=== PATIENT | female | born 1975 | race Asian ===

== ENCOUNTER 2018-08-28 09:04 | Emergency (ER) | payer BC ==
[~2018-08-28] VITALS: Ht 160 cm; Wt 63.5 kg
[2018-08-28 09:04] VITALS: BP_SYST 147
--- NOTE | 2018-08-28 09:04 | NUR ---
BROUGHT IN BY [facility], PLACED IN BED #6 AND TRIAGED. REPORT GIVEN TO ZOHREH
--- NOTE | 2018-08-28 09:15 | NUR ---
Pt presents to ED c/o CWP at work. Pt has no med hx.
--- NOTE | 2018-08-28 09:20 | NUR ---
ER at bedside examining patient.
[2018-08-28] MEDS ORDERED: KETOROLAC TROMETHAMINE 15 MG VIAL IVP ONE (10:00)
[2018-08-28] MEDS ORDERED: KETOROLAC TROMETHAMINE 30 MG VIAL IM ONE (10:15)
[2018-08-28 10:50] LABS: BASOPHILS # (AUTO) 0.1 K/uL (0.0-0.2); BASOPHILS % (AUTO) 0.6 % (0.0-2.0); EOSINOPHILS % (AUTO) 0.3 % (0.0-4.0); HEMATOCRIT 35.2 % (36-48); HEMOGLOBIN 11.1 g/dL (12.0-16.0); LYMPHOCYTES # (AUTO) 1.5 K/uL (1.0-5.5); LYMPHOCYTES % (AUTO) 16.8 % (20.5-51.5); MEAN CORPUSCULAR HEMOGLOBIN 25 pg (27-31); MEAN CORPUSCULAR HGB CONC 32 % (32-36); MEAN CORPUSCULAR VOLUME 79 fL (79.0-98.0); MONOCYTES # (AUTO) 0.6 K/uL (0.0-1.0); MONOCYTES % (AUTO) 6.4 % (1.7-9.3); NEUTROPHILS # (AUTO) 6.9 K/uL (1.8-7.7); NEUTROPHILS % (AUTO) 75.9 % (40.0-70.0); PLATELET COUNT (AUTO) 395 K/uL (130-430); RED BLOOD CELL COUNT(AUTO) 4.47 MIL/uL (4.2-6.2); RED CELL DISTRIBUTION WIDTH 15.9 % (9.0-15.0); WHITE BLOOD COUNT (AUTO) 9.1 K/uL (4.8-10.8)
[2018-08-28 10:58] LABS: ANION GAP 9 (5-15); CALCIUM 9.3 mg/dL (8.4-11.0); CHLORIDE 106 mmol/L (98-107); CREATININE 0.66 mg/dL (0.55-1.30); GLUCOSE 94 mg/dL (70-99); POTASSIUM 3.7 mmol/L (3.5-5.1); SODIUM SERUM 141 mmol/L (136-145); UREA NITROGEN, BLOOD 18 mg/dL (8-21)
--- NOTE | 2018-08-28 11:00 | NUR ---
pt reports pain resolved.
[2018-08-28 11:05] LABS: ALANINE AMINOTRANSFERASE 26 U/L (12-78); ALBUMIN 3.9 g/dL (3.4-4.8); ASPARTATE AMINOTRANSFERASE 19 U/L (10-37); TOTAL BILIRUBIN 0.3 mg/dL (0.0-1.0)
[2018-08-28 11:09] LABS: GFR AFRICAN AMERICAN 125 mL/min (>90)
[2018-08-28 12:30] VITALS: BP_SYST 132
--- NOTE | 2018-08-28 12:30 | NUR ---
Patient given written and verbal discharge instructions and verbalizes understanding. ER MD discussed with patient the results and treatment provided. Patient in stable condition. ID arm band removed. Rx of Naproxen given. Patient educated on pain management and to follow up with PMD. Pain Scale 0. Opportunity for questions provided and answered. Medication side effect fact sheet provided.
== END 2018-08-28 12:30 | disposition home or self-care (01) ==
LOC: SED 09:04
DX: M94.0 Chondrocostal junction syndrome [Tietze] (principal); R07.89 Other chest pain; R03.0 Elevated blood-pressure reading, without diagnosis of hypertension
CPT/HCPCS: 36415; 71045; 80053; 83880; 84484; 85025; 85379; 93005; 96372; 99284; J1885